=== PATIENT | female | born 1960 | race African-American/Black ===

== ENCOUNTER → 2016-12-12 | Outpatient (CLI) | payer BC ==
[~2016-12-12] VITALS: Ht 165.1 cm; Wt 142.4 kg
[~2016-12-12] MED LIST: ADIPEX-P37.5 MG PO; AMLOPIDINE; ATIVAN 0.50.5 MG/TAB PO; ATIVAN0.5 MG PO; BLADDER CONTROL MED PO; BUPROBAN150 MG PO; CARVEDILOL; CLARITIN 1010 MG/TAB PO; COREG 3.123.125 MG/T PO; COREG12.5 MG PO; CYMBALTA 30MG30 MG PO; CYMBALTA 60MG60 MG PO; DESYREL 100MG100 MG PO; DESYREL 50MG50 MG PO; FLEXERIL 1010 MG/TAB PO; HCTZ 25MG TAB25 MG PO; LORTAB 5/500 501 TAB PO; MEVACOR 20M20 MG/TAB PO; MICROZIDE12.5 MG PO; MYRBETR25MG PO; NEURONTIN600 MG/TAB PO; NEXIUM PO; NORVASC 5MG5 MG/TAB PO; ORTHO TRI-CYCLE1 TA1 PO; PRINIVIL2.5 MG PO; PROTONIX 40MG T40 MG PO; TOPAMAX 25MG25 M1 PO; TRAZODONE100 MG PO; WELLBUTRIN XL150 MG PO; WELLBUTRIN XL300 M1; WELLBUTRIN XL300 M1 PO; ZANTAC 150MG T150 MG PO; ZESTRIL 20MG TA20 MG PO; ZIPSOR25 MG PO; ZOFRAN8 MG PO; ZORVOLEX35 MG PO; [UNRECOGNIZED DRUG - OTHER]
[2016-12-12 09:59] VITALS: BP 128/66; PULSE 99
[2016-12-12 10:17] VITALS: BP 128/66; PULSE 99
== END ==
LOC: LIGHT 09:50
DX: E88.81 Metabolic syndrome and other insulin resistance (principal); E16.1 Other hypoglycemia; E66.01 Morbid (severe) obesity due to excess calories; Z68.43 Body mass index [BMI] 50.0-59.9, adult; F50.81 Binge eating disorder

== ENCOUNTER → 2017-01-03 | Outpatient (CLI) | payer BC | LOC: BHSO 09:01 | DX: F33.1 Major depressive disorder, recurrent, moderate (principal) ==

== ENCOUNTER → 2017-01-08 | Outpatient (CLI) | payer BC | LOC: BHSO 15:18 | DX: F33.41 Major depressive disorder, recurrent, in partial remission (principal) ==

== ENCOUNTER → 2017-01-16 | Outpatient (CLI) | payer BC ==
[~2017-01-16] VITALS: Ht 165.1 cm; Wt 142.9 kg
[2017-01-16 13:11] VITALS: BP 121/72; PULSE 96
[2017-01-16 13:28] VITALS: BP 121/72; PULSE 96
== END ==
LOC: LIGHT 12:55
DX: E88.81 Metabolic syndrome and other insulin resistance (principal); E16.1 Other hypoglycemia; F50.89 Other specified eating disorder; E66.01 Morbid (severe) obesity due to excess calories; Z68.43 Body mass index [BMI] 50.0-59.9, adult

== ENCOUNTER 2017-01-18 18:18 | Emergency (ER) | payer BC ==
[~2017-01-18] VITALS: Ht 165.1 cm; Wt 143.2 kg
[~2017-01-18 18:18] MED LIST changes: -ZOFRAN8 MG PO
[2017-01-18 18:20] VITALS: TEMP 99.1
[2017-01-18] MEDS ORDERED: ZOFRAN8 MG PO (19:14)
[2017-01-18 19:42] LABS: BASO % 0.8 % (0.0-2.0); EOS # 0.1 (0.0-0.7); GRAN # 2.1 (1.4-6.5); GRAN % 41.4 % (42.2-75.2); HEMATOCRIT 36.9 % (37.0-47.0); HEMOGLOBIN 12.3 g/dl (12.5-16.0); LYMPH # 2.4 (1.2-3.4); LYMPH % 46.9 % (20.0-51.0); MEAN CELL VOLUME 92 fl (80.0-100.0); MEAN CORPUSCULAR HEMOGLOBIN 31 pg (27.0-31.0); MEAN CORPUSCULAR HGB CONC 33 g/dl (33.0-37.0); MEAN PLATELET VOLUME 9.2 fl (7.4-10.4); MONO # 0.4 (0.1-0.6); MONO % 8.7 % (1.7-9.3); PLATELET COUNT 344 K/mm3 (130-400); RED BLOOD COUNT 4.01 M/mm3 (4.10-5.30); WHITE BLOOD COUNT 5.1 K/mm3 (4.8-10.8)
[2017-01-18 19:45] LABS: ADJUSTED CALCIUM 9.6 mg/dL (8.4-10.2); ALANINE AMINOTRANSFERASE 31 U/L (9-52); ALBUMIN 4.4 gm/dL (3.5-5.0); ALKALINE PHOSPHATASE 85 U/L (50-136); ANION GAP 13 mmol/L (7-16); BLOOD UREA NITROGEN 25 mg/dL (7-17); CALCIUM 9.9 mg/dL (8.4-10.2); CARBON DIOXIDE 28 mmol/L (22-30); CHLORIDE 100 mmol/L (98-107); CREATININE, serum 1.33 mg/dL (0.52-1.25); GLUCOSE 94 mg/dL (74-106); LIPASE 97 U/L (23-300); POTASSIUM 3.8 mmol/L (3.4-5.0); SODIUM 141 mmol/L (137-145); TOTAL PROTEIN 8.1 gm/dL (6.4-8.2)
[2017-01-18 19:46] LABS: PH 6 (5-8); URINE APPEARANCE Hazy; URINE BACTERIA Rare /hpf; URINE BILIRUBIN Negative (NEGATIVE); URINE BLOOD Negative (NEGATIVE); URINE COLOR Yellow; URINE GLUCOSE Negative (NEGATIVE); URINE KETONE Negative (NEGATIVE); URINE RBC 0-2 /hpf; URINE UROBILINOGEN Negative (NEGATIVE)
[2017-01-18 19:59] LABS: TROPONIN-I < 0.012 ng/mL (0.000-0.034)
[2017-01-18 20:47] VITALS: BP 130/77; PULSE 94
== END 2017-01-18 20:47 | disposition home or self-care (01) ==
LOC: COL.ER 18:18
PROVIDERS: Emergency Medicine
DX: R55 Syncope and collapse (principal); N19 Unspecified kidney failure
CPT/HCPCS: J2405; J7030

== ENCOUNTER → 2017-02-12 | Outpatient (CLI) | payer BC ==
[~2017-02-12] MED LIST changes: +ZOFRAN8 MG PO
== END ==
LOC: BHSO 09:03
DX: F41.1 Generalized anxiety disorder (principal)

== ENCOUNTER → 2017-02-20 | Outpatient (CLI) | payer BC ==
[~2017-02-20] VITALS: Ht 165.1 cm; Wt 142.4 kg
[2017-02-20 13:36] VITALS: BP 128/60; PULSE 91
== END ==
LOC: LIGHT 13:30
DX: E88.81 Metabolic syndrome and other insulin resistance (principal); E16.1 Other hypoglycemia; E66.01 Morbid (severe) obesity due to excess calories; Z68.43 Body mass index [BMI] 50.0-59.9, adult; F50.81 Binge eating disorder

== ENCOUNTER → 2017-02-27 | Outpatient (CLI) | payer BC | LOC: BHSO 10:12 | DX: F41.1 Generalized anxiety disorder (principal) ==

== ENCOUNTER → 2017-03-20 | Outpatient (CLI) | payer SELFPAY | LOC: BHSO 14:55 | DX: F41.1 Generalized anxiety disorder (principal) ==

== ENCOUNTER → 2017-03-27 | Outpatient (CLI) | payer SELFPAY ==
[~2017-03-27] VITALS: Ht 165.1 cm; Wt 137.9 kg
[2017-03-27 11:00] VITALS: BP 108/70; PULSE 81
[2017-07-14 13:55] VITALS: BP 148/86; PULSE 88
[2017-07-28 10:52] VITALS: BP 118/76; PULSE 68
== END ==
LOC: BHSO 03-13 09:59 → LIGHT 09:10
DX: E88.81 Metabolic syndrome and other insulin resistance (principal); E16.1 Other hypoglycemia; E66.01 Morbid (severe) obesity due to excess calories; Z68.43 Body mass index [BMI] 50.0-59.9, adult; F50.81 Binge eating disorder

== ENCOUNTER → 2017-06-12 | Outpatient (CLI) | payer SELFPAY | LOC: BHSO 10:47 | DX: F33.41 Major depressive disorder, recurrent, in partial remission (principal) ==

== ENCOUNTER → 2017-06-26 | Outpatient (CLI) | payer SELFPAY | LOC: BHSO 15:58 | DX: F41.1 Generalized anxiety disorder (principal) ==

== ENCOUNTER → 2017-07-14 | Outpatient (CLI) | payer SELFPAY | LOC: BHSO 13:08 | DX: F41.1 Generalized anxiety disorder (principal) ==

== ENCOUNTER → 2017-07-25 | Outpatient (CLI) | payer SELFPAY | LOC: BHSO 10:04 | DX: F41.1 Generalized anxiety disorder (principal) ==

== ENCOUNTER → 2017-07-28 | Outpatient (CLI) | payer SELFPAY | LOC: BHSO 10:14 | DX: F33.1 Major depressive disorder, recurrent, moderate (principal) ==

== ENCOUNTER → 2017-08-11 | Outpatient (CLI) | payer SELFPAY | LOC: BHSO 10:14 | DX: F41.1 Generalized anxiety disorder (principal) ==

== ENCOUNTER → 2017-08-13 | Outpatient (CLI) | payer SELFPAY | LOC: BHSO 10:53 | DX: F33.41 Major depressive disorder, recurrent, in partial remission (principal) ==

== ENCOUNTER → 2017-09-05 | Outpatient (CLI) | payer BC | LOC: BHSO 13:03 | DX: F33.1 Major depressive disorder, recurrent, moderate (principal) ==

== ENCOUNTER → 2017-09-17 | Outpatient (CLI) | payer BC | LOC: BHSO 10:07 | DX: F33.1 Major depressive disorder, recurrent, moderate (principal) ==

== ENCOUNTER → 2017-09-25 | Outpatient (CLI) | payer BC | LOC: BHSO 10:27 | DX: F33.41 Major depressive disorder, recurrent, in partial remission (principal) ==

== ENCOUNTER → 2017-10-08 | Outpatient (CLI) | payer BC | LOC: BHSO 09:17 | DX: F41.1 Generalized anxiety disorder (principal) ==

== ENCOUNTER → 2017-10-09 | Outpatient (CLI) | payer BC ==
[~2017-10-09] VITALS: Ht 165.1 cm; Wt 138.3 kg
[2017-10-09 11:29] VITALS: BP 126/76; PULSE 72
== END ==
LOC: LIGHT 11:08
DX: E88.81 Metabolic syndrome and other insulin resistance (principal); E16.1 Other hypoglycemia; E66.01 Morbid (severe) obesity due to excess calories; Z68.43 Body mass index [BMI] 50.0-59.9, adult; Z71.3 Dietary counseling and surveillance; F50.81 Binge eating disorder

== ENCOUNTER → 2017-11-06 | Outpatient (CLI) | payer BC ==
[~2017-11-06] MED LIST changes: +TOPAMAX50 MG PO
== END ==
LOC: BHSO 09:13
DX: F41.1 Generalized anxiety disorder (principal)

== ENCOUNTER → 2017-11-06 | Outpatient (CLI) | payer BC ==
[~2017-11-06] VITALS: Ht 165.1 cm; Wt 137.4 kg
[2017-11-06 10:29] VITALS: BP 110/70; PULSE 72
== END ==
LOC: LIGHT 10:08
DX: E88.81 Metabolic syndrome and other insulin resistance (principal); E16.1 Other hypoglycemia; E66.01 Morbid (severe) obesity due to excess calories; Z68.43 Body mass index [BMI] 50.0-59.9, adult; Z71.3 Dietary counseling and surveillance; F50.81 Binge eating disorder

== ENCOUNTER → 2017-12-11 | Outpatient (CLI) | payer BC | LOC: BHSO 14:40 | DX: F41.1 Generalized anxiety disorder (principal) | CPT/HCPCS: G0463 ==

== ENCOUNTER → 2017-12-11 | Outpatient (CLI) | payer BC ==
[~2017-12-11] VITALS: Ht 165.1 cm; Wt 137.4 kg
[2017-12-11 12:24] VITALS: BP 120/64; PULSE 88
== END ==
LOC: LIGHT
DX: E88.81 Metabolic syndrome and other insulin resistance (principal); E16.1 Other hypoglycemia; E66.01 Morbid (severe) obesity due to excess calories; Z68.43 Body mass index [BMI] 50.0-59.9, adult; Z71.3 Dietary counseling and surveillance; F50.81 Binge eating disorder
CPT/HCPCS: G0463

== ENCOUNTER → 2017-12-15 | Outpatient (CLI) | payer BC | LOC: BHSO 09:12 | DX: F41.1 Generalized anxiety disorder (principal) ==

== ENCOUNTER → 2018-01-15 | Outpatient (CLI) | payer BC ==
[~2018-01-15] VITALS: Ht 165.1 cm; Wt 137.2 kg
[~2018-01-15] MED LIST changes: +MOBIC15 MG PO
[2018-01-15 10:40] VITALS: BP 120/74; PULSE 80
== END ==
LOC: LIGHT 09:19
DX: E88.81 Metabolic syndrome and other insulin resistance (principal); E16.1 Other hypoglycemia; E66.01 Morbid (severe) obesity due to excess calories; Z68.43 Body mass index [BMI] 50.0-59.9, adult; Z71.3 Dietary counseling and surveillance; F50.81 Binge eating disorder
CPT/HCPCS: G0463

== ENCOUNTER → 2018-01-21 | Outpatient (CLI) | payer BC | LOC: BHSO 11:01 | DX: F33.2 Major depressive disorder, recurrent severe without psychotic features (principal) ==

== ENCOUNTER → 2018-01-26 | Outpatient (CLI) | payer BC | LOC: BHSO 10:05 | DX: F33.2 Major depressive disorder, recurrent severe without psychotic features (principal) ==

== ENCOUNTER → 2018-02-12 | Outpatient (CLI) | payer BC | LOC: BHSO 09:45 | DX: F33.41 Major depressive disorder, recurrent, in partial remission (principal) | CPT/HCPCS: G0463 ==

== ENCOUNTER → 2018-02-17 | Outpatient (CLI) | payer BC | LOC: BHSO 09:06 | DX: F33.1 Major depressive disorder, recurrent, moderate (principal) ==

== ENCOUNTER → 2018-03-05 | Outpatient (CLI) | payer BC | LOC: BHSO 10:07 | DX: F33.2 Major depressive disorder, recurrent severe without psychotic features (principal) ==

== ENCOUNTER → 2018-03-12 | Outpatient (CLI) | payer BC ==
[~2018-03-12] VITALS: Ht 165.1 cm; Wt 138.3 kg
[2018-03-12 14:10] VITALS: BP 130/76; PULSE 80
== END ==
LOC: LIGHT
DX: E88.81 Metabolic syndrome and other insulin resistance (principal); E16.1 Other hypoglycemia; E66.01 Morbid (severe) obesity due to excess calories; Z68.43 Body mass index [BMI] 50.0-59.9, adult; Z71.3 Dietary counseling and surveillance; F50.81 Binge eating disorder
CPT/HCPCS: G0463

== ENCOUNTER → 2018-03-19 | Outpatient (CLI) | payer BC | LOC: BHSO 13:20 | DX: F33.1 Major depressive disorder, recurrent, moderate (principal) ==

== ENCOUNTER → 2018-04-10 | Outpatient (CLI) | payer BC | LOC: BHSO 13:00 | DX: F33.1 Major depressive disorder, recurrent, moderate (principal) ==

== ENCOUNTER → 2018-04-23 | Outpatient (CLI) | payer BC ==
[~2018-04-23] VITALS: Ht 165.1 cm; Wt 139.9 kg
[2018-04-23 09:53] VITALS: BP 118/76; PULSE 76
== END ==
LOC: LIGHT 09:44
DX: E88.81 Metabolic syndrome and other insulin resistance (principal); E16.1 Other hypoglycemia; E66.01 Morbid (severe) obesity due to excess calories; Z68.43 Body mass index [BMI] 50.0-59.9, adult; Z71.3 Dietary counseling and surveillance; F50.81 Binge eating disorder
CPT/HCPCS: G0463

== ENCOUNTER → 2018-05-08 | Outpatient (CLI) | payer BC | LOC: BHSO 13:21 | DX: F33.41 Major depressive disorder, recurrent, in partial remission (principal) | CPT/HCPCS: G0463 ==

== ENCOUNTER → 2018-05-20 | Outpatient (CLI) | payer BC | LOC: BHSO 14:13 | DX: F33.1 Major depressive disorder, recurrent, moderate (principal) ==

== ENCOUNTER → 2018-06-10 | Outpatient (CLI) | payer BC | LOC: COL.RAD 13:00 | DX: M25.551 Pain in right hip (principal) | CPT/HCPCS: J3301; Q9967 ==

== ENCOUNTER → 2018-06-11 | Outpatient (CLI) | payer BC | LOC: BHSO 09:23 | DX: F33.1 Major depressive disorder, recurrent, moderate (principal) ==

== ENCOUNTER → 2018-06-11 | Outpatient (CLI) | payer BC ==
[~2018-06-11] VITALS: Ht 162.6 cm; Wt 139.0 kg
[2018-06-11 13:40] VITALS: BP 134/70; PULSE 88
== END ==
LOC: LIGHT 11:17
DX: E88.81 Metabolic syndrome and other insulin resistance (principal); E16.1 Other hypoglycemia; E66.01 Morbid (severe) obesity due to excess calories; Z68.43 Body mass index [BMI] 50.0-59.9, adult; Z71.3 Dietary counseling and surveillance; F50.81 Binge eating disorder
CPT/HCPCS: G0463

== ENCOUNTER 2018-06-19 15:00 | Outpatient (RCR) | payer BC | END 2018-06-30 | disposition home or self-care (01) | LOC: WSPT | DX: M48.00 Spinal stenosis, site unspecified (principal); M54.5 Low back pain; M25.551 Pain in right hip ==

== ENCOUNTER → 2018-06-30 | Outpatient (CLI) | payer BC | LOC: BHSO 10:09 | DX: F33.1 Major depressive disorder, recurrent, moderate (principal) ==

== ENCOUNTER → 2018-07-01 | Outpatient (CLI) | payer BC | LOC: BHSO 09:01 | DX: Z09 Encounter for follow-up examination after completed treatment for conditions other than malignant neoplasm (principal) ==

== ENCOUNTER → 2018-07-16 | Outpatient (CLI) | payer BC | LOC: BHSO 09:14 | DX: F33.1 Major depressive disorder, recurrent, moderate (principal) ==

== ENCOUNTER → 2018-08-05 | Outpatient (CLI) | payer BC | LOC: BHSO 09:08 | DX: F33.41 Major depressive disorder, recurrent, in partial remission (principal) | CPT/HCPCS: G0463 ==

== ENCOUNTER → 2018-08-06 | Outpatient (CLI) | payer BC ==
[~2018-08-06] VITALS: Ht 162.6 cm; Wt 138.6 kg
[2018-08-06 11:57] VITALS: BP 122/70; PULSE 80
== END ==
LOC: LIGHT 07-23 16:17
DX: E88.81 Metabolic syndrome and other insulin resistance (principal); E16.9 Disorder of pancreatic internal secretion, unspecified; F50.81 Binge eating disorder; E66.01 Morbid (severe) obesity due to excess calories; Z68.42 Body mass index [BMI] 45.0-49.9, adult; Z71.3 Dietary counseling and surveillance
CPT/HCPCS: G0463

== ENCOUNTER → 2018-08-12 | Outpatient (CLI) | payer BC | LOC: BHSO 10:08 | DX: F33.1 Major depressive disorder, recurrent, moderate (principal) ==

== ENCOUNTER 2018-08-21 09:00 | Outpatient (RCR) | payer BC ==
[2018-09-17] MEDS ORDERED: NORCO 325 MG-51 TAB PO (11:49)
== END 2018-09-30 | disposition home or self-care (01) ==
LOC: WSPT
DX: M48.00 Spinal stenosis, site unspecified (principal); M54.5 Low back pain; M25.551 Pain in right hip
CPT/HCPCS: G0283-GP

== ENCOUNTER → 2018-09-17 | Outpatient (CLI) | payer BC ==
[~2018-09-17] VITALS: Ht 162.6 cm; Wt 137.2 kg
[~2018-09-17] MED LIST changes: +NORCO 325 MG-51 TAB PO
[2018-09-17 11:50] VITALS: BP 128/62; PULSE 92
== END ==
LOC: LIGHT 11:18
DX: E88.81 Metabolic syndrome and other insulin resistance (principal); E16.9 Disorder of pancreatic internal secretion, unspecified; F50.81 Binge eating disorder; E66.01 Morbid (severe) obesity due to excess calories; Z68.43 Body mass index [BMI] 50.0-59.9, adult; Z71.3 Dietary counseling and surveillance
CPT/HCPCS: G0463

== ENCOUNTER → 2018-10-01 | Outpatient (CLI) | payer BC | LOC: BHSO 10:01 | DX: F33.2 Major depressive disorder, recurrent severe without psychotic features (principal) ==

== ENCOUNTER → 2018-10-08 | Outpatient (CLI) | payer BC | LOC: BHSO 09:41 | DX: F33.41 Major depressive disorder, recurrent, in partial remission (principal) | CPT/HCPCS: G0463 ==

== ENCOUNTER → 2018-10-15 | Outpatient (CLI) | payer BC | LOC: BHSO 14:04 | DX: F33.2 Major depressive disorder, recurrent severe without psychotic features (principal) ==

== ENCOUNTER → 2018-10-15 | Outpatient (CLI) | payer BC ==
[~2018-10-15] VITALS: Ht 162.6 cm; Wt 134.9 kg
[2018-10-15 15:25] VITALS: BP 140/82; PULSE 88
== END ==
LOC: LIGHT 14:06
DX: E88.81 Metabolic syndrome and other insulin resistance (principal); E16.9 Disorder of pancreatic internal secretion, unspecified; E66.01 Morbid (severe) obesity due to excess calories; Z68.43 Body mass index [BMI] 50.0-59.9, adult; Z71.3 Dietary counseling and surveillance
CPT/HCPCS: G0463

== ENCOUNTER → 2018-12-16 | Outpatient (CLI) | payer BC | LOC: BHSO 11:06 | DX: F33.1 Major depressive disorder, recurrent, moderate (principal) | CPT/HCPCS: G0463 ==

== ENCOUNTER → 2018-12-17 | Outpatient (CLI) | payer BC ==
[~2018-12-17] VITALS: Ht 162.6 cm; Wt 134.5 kg
[2018-12-17 11:41] VITALS: BP 126/70; PULSE 92
== END ==
LOC: LIGHT
DX: E88.81 Metabolic syndrome and other insulin resistance (principal); E16.9 Disorder of pancreatic internal secretion, unspecified; F50.81 Binge eating disorder; E66.01 Morbid (severe) obesity due to excess calories; Z68.43 Body mass index [BMI] 50.0-59.9, adult; Z71.3 Dietary counseling and surveillance
CPT/HCPCS: G0463

== ENCOUNTER → 2018-12-17 | Outpatient (CLI) | payer BC | LOC: BHSO 11:28 | DX: F33.2 Major depressive disorder, recurrent severe without psychotic features (principal) ==

== ENCOUNTER → 2018-12-31 | Outpatient (CLI) | payer BC | LOC: BHSO 11:00 | DX: F33.2 Major depressive disorder, recurrent severe without psychotic features (principal) ==

== ENCOUNTER → 2019-01-11 | Outpatient (CLI) | payer BC | LOC: MHCPAIN 10:26 | DX: G89.29 Other chronic pain (principal); M47.817 Spondylosis without myelopathy or radiculopathy, lumbosacral region; M54.16 Radiculopathy, lumbar region; M53.3 Sacrococcygeal disorders, not elsewhere classified; M48.061 Spinal stenosis, lumbar region without neurogenic claudication | CPT/HCPCS: G0463 ==

== ENCOUNTER → 2019-01-14 | Outpatient (CLI) | payer BC | LOC: BHSO 13:01 | DX: F33.1 Major depressive disorder, recurrent, moderate (principal) ==

== ENCOUNTER → 2019-01-28 | Outpatient (CLI) | payer BC | LOC: BHSO 13:01 | DX: F33.1 Major depressive disorder, recurrent, moderate (principal) ==

== ENCOUNTER → 2019-02-23 | Outpatient (CLI) | payer BC | LOC: BHSO 14:12 | DX: F42.9 Obsessive-compulsive disorder, unspecified (principal) ==

== ENCOUNTER → 2019-03-08 | Outpatient (CLI) | payer BC | LOC: BHSO 10:46 | DX: F33.1 Major depressive disorder, recurrent, moderate (principal) ==

== ENCOUNTER → 2019-03-25 | Outpatient (CLI) | payer BC | LOC: BHSO 11:02 | DX: F33.1 Major depressive disorder, recurrent, moderate (principal) ==

== ENCOUNTER → 2019-04-12 | Outpatient (CLI) | payer BC | LOC: BHSO 14:25 | DX: F06.32 Mood disorder due to known physiological condition with major depressive-like episode (principal) | CPT/HCPCS: G0463 ==

== ENCOUNTER 2019-04-16 11:31 | Day surgery (SDC) | payer BC ==
[~2019-04-16] VITALS: Ht 162.6 cm; Wt 138.8 kg
[2019-04-16] VITALS (12 sets, daily range): BP systolic 105–120; BP diastolic 58–94; PULSE 76–85; TEMP 98.6
[2019-04-16] MEDS ORDERED: CLARITIN 1010 MG/TAB PO (12:14)
[2019-04-16] MEDS ORDERED: MYRBETR25MG PO (12:16)
[2019-04-16 12:20] LABS: MEAN CELL VOLUME 93 fl (80.0-100.0); MEAN CORPUSCULAR HEMOGLOBIN 32 pg (27.0-31.0); MEAN CORPUSCULAR HGB CONC 34 g/dl (33.0-37.0); MEAN PLATELET VOLUME 8.9 fl (7.4-10.4); PLATELET COUNT 318 K/mm3 (130-400); RED BLOOD COUNT 3.81 M/mm3 (4.10-5.30); REDCELL DISTRIBUTION WIDTH-CV 12.7 % (11.5-14.5)
[2019-04-16 12:22] LABS: HEMATOCRIT 35.5 % (37.0-47.0)
[2019-04-16 12:29] LABS: CALCIUM 9.3 mg/dL (8.4-10.2); CREATININE, serum 1.16 (0.52-1.25); POTASSIUM 3.4 mmol/L (3.4-5.0)
[2019-04-16 12:40] LABS: INR 1.1 (0.8-3.0)
--- NOTE | 2019-04-16 13:13 | NUR ---
P[LEASE SEE MERGE FOR ALL MEDICATION ADMINISTRATION TIMES,RASS ASSESSMENT DATA DURING AND POST PROCEDURE. ALLENS TEST POSITIVE AND RADIAL PREPPED..
[2019-04-16] MEDS ORDERED: COLACE 100100 MG/CAP PO (13:17)
[2019-04-16] MEDS ORDERED: SALAGEN 5MG TAB5 MG PO (13:17)
[2019-04-16] MEDS ORDERED: DETROL LA4 PO (13:19)
[2019-04-16] MEDS ORDERED: PLAQUENIL 200M200 MG PO (13:20)
--- NOTE | 2019-04-16 13:28 | NUR ---
Called [facility] [place] [facility] well [facility] in [place] and verified all medications, current med list is up to date. 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 Will await return.
--- NOTE | 2019-04-16 18:11 | NUR ---
Discharge instructions given to pt.pt verbalizes understanding.INT removed,catheter tip intact.
== END 2019-04-16 18:13 | disposition home or self-care (01) ==
LOC: COL.CAR 11:31
PROVIDERS: Internal Medicine Interventional Cardiology
DX: R07.9 Chest pain, unspecified (principal); R94.39 Abnormal result of other cardiovascular function study; M79.601 Pain in right arm; R06.02 Shortness of breath; R93.89 Abnormal findings on diagnostic imaging of other specified body structures; Z82.49 Family history of ischemic heart disease and other diseases of the circulatory system
CPT/HCPCS: C1769; C1894; J1644; J2250; J3010

== ENCOUNTER → 2019-04-19 | Outpatient (CLI) | payer BC ==
[~2019-04-19] MED LIST changes: +COLACE 100100 MG/CAP PO; +DETROL LA4 PO; +PLAQUENIL 200M200 MG PO; +SALAGEN 5MG TAB5 MG PO
== END ==
LOC: BHSO 11:13
DX: F33.1 Major depressive disorder, recurrent, moderate (principal)

== ENCOUNTER → 2019-04-29 | Outpatient (CLI) | payer BC | LOC: BHSO 10:13 | DX: F33.1 Major depressive disorder, recurrent, moderate (principal) ==

== ENCOUNTER → 2019-04-29 | Outpatient (CLI) | payer BC ==
[~2019-04-29] VITALS: Ht 162.6 cm; Wt 140.4 kg
[2019-04-29 11:06] VITALS: BP 136/66; PULSE 76
== END ==
LOC: LIGHT 02-18 00:49
DX: E88.81 Metabolic syndrome and other insulin resistance (principal); E16.9 Disorder of pancreatic internal secretion, unspecified; F50.81 Binge eating disorder; E66.01 Morbid (severe) obesity due to excess calories; Z68.43 Body mass index [BMI] 50.0-59.9, adult; Z71.3 Dietary counseling and surveillance
CPT/HCPCS: G0463

== ENCOUNTER → 2019-05-11 | Outpatient (CLI) | payer BC | LOC: BHSO 14:06 | DX: F33.1 Major depressive disorder, recurrent, moderate (principal) ==

== ENCOUNTER → 2019-05-26 | Outpatient (CLI) | payer BC | LOC: BHSO 13:57 | DX: F33.1 Major depressive disorder, recurrent, moderate (principal) ==

== ENCOUNTER → 2019-05-27 | Outpatient (CLI) | payer BC, MEDICAID ==
[~2019-05-27] VITALS: Ht 162.6 cm; Wt 144.0 kg
[2019-05-27 16:08] VITALS: BP 122/64; PULSE 100
== END ==
LOC: LIGHT 13:36
DX: E88.81 Metabolic syndrome and other insulin resistance (principal); E16.9 Disorder of pancreatic internal secretion, unspecified; F50.81 Binge eating disorder; E66.01 Morbid (severe) obesity due to excess calories; Z68.43 Body mass index [BMI] 50.0-59.9, adult; Z71.3 Dietary counseling and surveillance
CPT/HCPCS: G0463

== ENCOUNTER 2019-06-24 10:40 | Inpatient (IN) | payer BC, MEDICAID ==
[~2019-06-24] VITALS: Ht 162.6 cm; Wt 150.5 kg
[~2019-06-24 10:40] MED LIST changes: -DESYREL 100MG100 MG PO; +DESYREL DIVIDO150 M1 PO; +MYRBETR50MG PO; +NORCO 325 MG-101 TAB PO
[2019-06-24 19:20] VITALS: BP 120/55; PULSE 97; TEMP 99
[2019-06-24] MEDS ORDERED: ASPIRIN E.C. 8181 MG PO (21:41)
[2019-06-24] MEDS ORDERED: WELLBUTRIN XL150 MG PO (21:44)
[2019-06-24] MEDS ORDERED: K-TAB10 PO (21:45)
[2019-06-24] MEDS ORDERED: VESICARE 5MG5 MG PO (21:53)
--- NOTE | 2019-06-24 22:48 | NUR ---
Pt arrived via private vehicle to [facility] room 339 at shift change. Pt signed consents, new wristband applied, in bed with alarm on, call lt in reach. Questions answered, pt ordered meals for tomorrow. Report to MARLYN Eugene.
[2019-06-25 05:47] VITALS: BP 109/49; PULSE 89; TEMP 98.2
[2019-06-25 09:10] VITALS: BP 115/61
--- NOTE | 2019-06-25 10:56 | NUR ---
Initial visit; Patient thanked Sanitation Associate for looking in on her and offering spiritual care. Patient states she doesn't have a support system. She has a few friends who are only available occasionally. Sanitation Associate prayed with Jackeline and assured her we are all here to support and provide the care she needs to get well.
[2019-06-25] MEDS ORDERED: ZANAFLEX2 MG PO (11:53)
--- NOTE | 2019-06-25 16:53 | NUR ---
SW met with the patient to complete initial intake, as the patient is new to [facility]. The patient lives alone in [place] and used to work as a social services analyst. She states that her only child, Chuy Rabago, lives in [place]; but that they do not have the best relationship right now. She states that she has good friend support in [place]. She reports independence with ADLs and has two rolaiders and a power wheelchair. The patient's primary care provider is DEBORAH Freed and she receives her medications at the [facility] and [facility] in [place]. She reports no difficulties obtaining her meds. The patient does not have advanced directives. She states that she is unsure of who she would designate to be her DPOA-HC. ANGELINE to continue to follow to ensure a safe discharge.
--- NOTE | 2019-06-25 17:00 | NUR ---
Patient resting in recliner at this time, call light in reach and is one assist with transfers to the toilet using her walker. Patient attended all therapies today. Patient did have some frustration with call lights not being answered in a timely manner this afternoon. This nurse let patient talk about this frustration and this nurse gave her the nurse cell number to call to report if her call light did not get answered and to make sure she was able to get her needs known. She voiced undrstanding. Patient also was educated on the need to ask the nurse for pain meds when she felt she needed them. She voiced understanding. Patient was given prn pain meds with good effect. Patient had constipation and this nurse assisted patient with stool removal and administered a suppository. Patient had good results having three large stools.
[2019-06-25 18:35] VITALS: BP 105/68; PULSE 97; TEMP 97.5
[2019-06-26 05:57] VITALS: BP 95/56; PULSE 84; TEMP 98.3
--- NOTE | 2019-06-26 13:14 | NUR ---
Pt's friend Dawson Penaloza taking pt's container of various medications home for pt. Pt to chair with foot rest up, SCDs in place, yellow grippers on, glasses and call lt in reach. Friends visiting.
--- NOTE | 2019-06-26 14:41 | NUR ---
Pt toileted, returned to bed, SCDs and foam placed to BLE, ice to rt hip, dressing has scant drainage. Call lt, phone in reach, alarm on.
[2019-06-26 18:16] VITALS: BP 134/72; PULSE 91; TEMP 98.3
--- NOTE | 2019-06-26 19:16 | NUR ---
Pt has visitors, bed alarm on, call lt in reach, SCDs to BLE, RLE on 2 pillows, ice to R hip. Report to MARLYN Eugene.
--- NOTE | 2019-06-26 20:30 | NUR ---
PT'S FAMILY HERE. CHEERFUL AND TALKATIVE. JUST FINISHED PROTEIN DRINK. DECLINED ENLIVE SUPPLEMENT. PT MOVING WELL IN AND OUT OF BED. RT HIP SWOLLEN. AQUACELL INTACT. SL PEELING ON EDGE. SMALL AMT DARK SHADOWING NOTED. PAIN UNDER CONTOL AT THIS TIME. CALL LIGHT IN REACH. BED ALARM SET.
--- NOTE | 2019-06-26 23:45 | NUR ---
PT C/O MUSCLE ACHES IN BILAT ARMS. SEE MAR.
[2019-06-27 05:15] VITALS: BP 107/61; PULSE 82; TEMP 98.1
[2019-06-27 06:01] LABS: BASO % 0.7 % (0.0-2.0); EOS # 0.2 (0.0-0.7); EOS % 3.5 % (0-4.0); GRAN # 2.2 (1.4-6.5); GRAN % 51.7 % (42.2-75.2); HEMATOCRIT 24.4 % (37.0-47.0); LYMPH # 1.5 (1.2-3.4); LYMPH % 35.9 % (20.0-51.0); MEAN CELL VOLUME 96 fl (80.0-100.0); MEAN CORPUSCULAR HEMOGLOBIN 31 pg (27.0-31.0); MEAN CORPUSCULAR HGB CONC 33 g/dl (33.0-37.0); MEAN PLATELET VOLUME 8.9 fl (7.4-10.4); MONO # 0.3 (0.1-0.6); PLATELET COUNT 283 K/mm3 (130-400); RED BLOOD COUNT 2.55 M/mm3 (4.10-5.30); REDCELL DISTRIBUTION WIDTH-CV 12.5 % (11.5-14.5)
[2019-06-27 06:20] LABS: CALCIUM 8.5 mg/dL (8.4-10.2); CREATININE, serum 0.9 (0.52-1.25); POTASSIUM 3.6 mmol/L (3.4-5.0)
--- NOTE | 2019-06-27 09:39 | NUR ---
Report from MARLYN Eugene. Pt to chair with feet up for breakfast, call lt in reach. Pt called for pain pill, when nurse arrived pt states "well, I'm not having any pain now" and rated 4/10, norco given, then pt verbalized frustrations with staff(ing) and especially when staff enter room at night and turn the overhead light on. Listened to pt, reitterated some points that pt c/o when staff were following safety protocol, ex: using gripper socks, gait belt, staff supervision to ambulate. Pt also c/o one SPECIAL EDUCATION MATH TEACHER "doing a different routine" whereas she set up the walker before helping pt get blankets off and out of bed first. Informed She, Sugar Grinder, and she came with Hugh Cortez, they are visiting with pt now.
--- NOTE | 2019-06-27 10:14 | NUR ---
Ice pack to rt hip
--- NOTE | 2019-06-27 12:04 | NUR ---
House Supervisors were in pt's room at length, they informed this nurse of no new complaints from pt to be addressed. Hugh assisted pt back to bed. Pt has not called for needs.
[2019-06-27 18:27] VITALS: BP 103/55; PULSE 86; TEMP 98.6
--- NOTE | 2019-06-27 20:24 | NUR ---
Report to MARLYN Eugene, and informed nurse that pt requests ativan tonight. No acute changes.
--- NOTE | 2019-06-28 02:53 | NUR ---
ASSITED TO BR WITH WALKER. MOVING VERY WELL. DENIES NEED FOR PAIN MEDICATION. NO DIFFICULTY VOIDING. BACK TO BEWD. SCDS AND PILLOWS IN PLACE. CALL LIGHT IN REACH. BED ALARM SET.
[2019-06-28 05:49] VITALS: BP 112/50; PULSE 91; TEMP 98.4
--- NOTE | 2019-06-28 10:25 | NUR ---
Attending therapies this morning. Reported pain to rt hip and given prn pain meds. Will continue to monitor.
--- NOTE | 2019-06-28 16:01 | NUR ---
SW met with patient to follow up after the weekend. Patient reports she is interested in some home health services when she is discharged. SW reports she will mention this in the weekly IPR team conference on Friday. SW will follow up with patient after team conference.
[2019-06-28 18:11] VITALS: BP 110/53; PULSE 89; TEMP 99.1
--- NOTE | 2019-06-28 20:30 | NUR ---
HS meds all reviewed along with zanaflex for pain prevention and given. Alert and oriented x 4. Takes snack of pie and icecream.
--- NOTE | 2019-06-28 21:03 | NUR ---
Patient attended all therapies today. Patient was updated on recent labs and was updated on new med orders per Dr. Kent. Patient was able to tolerate pain to right hip and thigh with prn pain meds. Patient took pills whole. Will continue to monitor.
--- NOTE | 2019-06-29 01:40 | NUR ---
Patient rests with eyes closed. Light snoring respirations.
--- NOTE | 2019-06-29 04:30 | NUR ---
Rests with eyes closed. Respirations with ease.
[2019-06-29 06:00] VITALS: BP 128/59; PULSE 87; TEMP 98.9
--- NOTE | 2019-06-29 06:27 | NUR ---
Patient sits up in recliner. Reports hip pain 8 and roxycodone, zanaflex and ativan given per patient request.
--- NOTE | 2019-06-29 14:10 | NUR ---
Follow-up visit; Patient thanked Psychiatric Np for looking in on her and offering Spiritual Care.
[2019-06-29 17:53] VITALS: BP 126/71; PULSE 90; TEMP 97.7
--- NOTE | 2019-06-29 19:31 | NUR ---
Patient had her dressing changed to right hip yesterday. There was small amount of dark dried bloody drainage on dressing that was removed. No redness was observed to area. [place] are intact. Area was cleaned and new aquacel was placed over area. Patient attended all therapies today. She ate multiple meals this shift, having two lunch trays. Patient had a Medium Soft Formed BM this evening and was continent. Patient was given prn pain meds this shift and they were effective. Patient had multiple visitors this afternoon.
--- NOTE | 2019-06-29 21:10 | NUR ---
Visitor left for the night. YARN SPINNER assisted patient for HS and patient rests in bed. HS meds reviewed and given along with norco and ativan per patient request. Patient reports minimal pain at rest at this time. Patient looking up adaptive tool on line to assist with personal hygiene.
--- NOTE | 2019-06-30 02:15 | NUR ---
Patient rests quietly in bed. Respirations with ease.
[2019-06-30 05:31] VITALS: BP 100/54; PULSE 85; TEMP 98.8
[2019-06-30 07:20] LABS: HEMATOCRIT 25.8 % (37.0-47.0); HEMOGLOBIN 8.2 g/dl (12.5-16.0)
--- NOTE | 2019-06-30 11:35 | NUR ---
Pt requested a suppository and it was documented that it was given yesterday, called MARLYN Alegre and she states that it was NOT given.
--- NOTE | 2019-06-30 12:08 | NUR ---
Ice to hip, made shake with own powder and sprite with ice blended.
--- NOTE | 2019-06-30 16:22 | NUR ---
SW attended a family conference with patient and her son (via phone). Also present was IPR director, PT, and OT. IPR director started by explaining the purpose of the family conference. PT and OT explained that patient has made good progress with ADLs, transfers, and walking. The team agrees that patient will be ready to discharge home on Tuesday 07/03 (pending insurance approval). PT and OT recommend patient recieve home health services and OT recommends patient use a shower chair. SW will assist patient with arranging home health services and finding a shower chair that will meet patient's needs. SW will follow up with patient tomorrow to discuss DME and [facility] choice.
[2019-06-30 17:22] VITALS: BP 127/67; PULSE 84; TEMP 98.6
--- NOTE | 2019-06-30 18:23 | NUR ---
Made mod I in shayy nguyen
--- NOTE | 2019-06-30 20:30 | NUR ---
RETURNING FROM BR W/WALKER. SLOW STEADY GAIT. FAMILY HERE EARLIER. VERY SUPPORIVE. PT SHOWING HER PAINTINGS. PT NEEDS ASSIST WITH PLACING PILLOWS AND SCD'S IN BED. SEE MAR FOR PAIN MED GIVEN.
[2019-07-01 03:41] VITALS: BP 124/59; PULSE 87; TEMP 98.2
--- NOTE | 2019-07-01 12:05 | NUR ---
Follow-up visit; Patient did not remember Metal Reclamation Kettle Tender from prior visits. Metal Reclamation Kettle Tender will now wait for request from Hillary for further visits.
--- NOTE | 2019-07-01 12:59 | NUR ---
Made slush with pt's own [place] powder, sprite and ice.
--- NOTE | 2019-07-01 16:32 | NUR ---
ANGELINE met with patient to discuss home health and DME company choice. Patient reviewed home health options for [place] adn chose [facility] [employer]. ANGELINE informed patient that there are two companies that have the size shower chair she needs. Patient chose [facility] for the shower chair and signed choice form. ANGELINE faxed home health referral and will fax shower chair after Dr Kent signs it.
[2019-07-01 18:34] VITALS: BP 116/62; PULSE 86; TEMP 98.2
--- NOTE | 2019-07-01 19:24 | NUR ---
Report to MARLYN Eugene. Ice packs given to pt per BOOK SALESMAN.
--- NOTE | 2019-07-01 20:15 | NUR ---
PT SITTING IN RECLINER. WATCHING TV. JUST ATE 2 ICE CREAMS. GETTING READY TO GO TO BED. MOD I IN ROOM W/WALKER. SEE MAR FOR PAIN MED/ ATIVAN GIVEN. ENC PT TO TRY TO WORK AT GETTING PILLOWS WHERE SHE NEEDED THEM IF SHE WERE AT HOME. ABLE TO SUCESSFULLY PLACE PILLOW BETWEEN KNEES WHEN TURNING TO SIDE. ICE PACK PLACED TO RT HIP. DENIES FURTHER NEEDS.
[2019-07-02 05:08] VITALS: BP 106/48; PULSE 45; TEMP 98.3
--- NOTE | 2019-07-02 07:00 | NUR ---
Report received from MARLYN Eugene. PT in bed resting, requesting fresh coffee, will provide. Call light in reach.
--- NOTE | 2019-07-02 08:16 | NUR ---
Assessment charted. Pt in bed resting, has requested assistance with having things brought to her in bed, discussed need to really "practice" for home today with independence. Pt denies any pain, states it does not hurt in R hip until amubalating. Aquacel is CDI. Voltaren gel applied per request. Pt denies other needs. Will continue to monitor.
--- NOTE | 2019-07-02 09:59 | NUR ---
ANGELINE contacted [facility] in [place] about the shower chair order that was faxed. They report that patient's insurance will not cover the cost of a shower chair. ANGELINE then contacted the [facility] to inquire if the have a shower chair available for patient to use. ANGELINE left a message for Perla. ANGELINE also conacted [facility] about referral. Joanie reports she is reviewing the referral and will contact ANGELINE after it is processed.
--- NOTE | 2019-07-02 14:09 | NUR ---
ANGELINE spoke to Janet at the [facility] in [place]. She reports they can provide a shower chair for patient. ANGELINE contacted patient's son, Chuy, to inquire if he can bean picker machine operator the shower chair today. Chuy reports he will. ANGELINE provided address. ANGELINE was also informed that patient is not eligible for home health PT/OT because her BCBS is no longer active. Patient was informed by the IPR director. ANGELINE will follow up with patient about outpatient PT/OT after therapy.
--- NOTE | 2019-07-02 14:29 | NUR ---
ANGELINE met with patient about discharge plan. Patient reports she will do outpatient PT/OT at [facility]. Patient's nurse will schedule her first appointment. ANGELINE also informed patient that her insurance is able to provide transportation for her to any appointments. ANGELINE provided patient with the Medicaid transportation number. ANGELINE also informed patient that her son will picking machine operator her shower chair today. No additional needs at this time. Patient will discharge tomorrow 07/03.
[2019-07-02 15:33] VITALS: BP 117/68; PULSE 82; TEMP 99.1
--- NOTE | 2019-07-02 17:51 | NUR ---
Pt has had good day. Had visitors this afternoon, has been on phone most of day with insurance and social security [employer]. Pt had shake prepared by me this afternoon per her request. Discussed this am need to try and promote independence in preparation for departure tomorrow but pt has been asking for me to get things for her from around the room for most of the day. Called this evening for help with "making her bed" and when asked if she needed supplies for her bed her response was "i didn't know if I was allowed to make my bed by myself". Encouraged her to perform as many activities by herself that she can but that we would be here to help with whatever else she needs. In chair at side of bed with 1 bedside table for own needs and the other bedside table for meal trays per her request. Call light in reach, will give bedside shift report to nightshift nurse who will resume care.
--- NOTE | 2019-07-02 20:30 | NUR ---
Patient assessed at this time. Alert and oriented, and able to make needs known. Complained of pain to right hip. Given PRN [place] as requested. Patient a little upset about going home tomorrow due to finiancial problems. Stated she had a long day on the phone and was not able to get a solution yet. Did not ask patient specifically what it was, but allowed patient to vent a little about situation. Talked about where she was from and patient was smiling more. LS CTA. Respirations even and unlabored. Denies SOB, dyspnea, and cough. HRR. Denies chest pain and discomfort. Capillary refill < 3 seconds. Non-tenting skin turgor. BSAx4. Abdomen soft and non-tender. No edema noted. Aquacell dressing to right hip is CDI. Denied Voltaren gel and ice to area. Denies having any questions, needs, or concerns at this time. Encouraged to call for assistance, and stated that she would. Given pie with ice-cream as requested. In recliner watching TV at this time. Call light is within reach.
[2019-07-03 05:03] VITALS: BP 101/47; PULSE 100; TEMP 98.5
--- NOTE | 2019-07-03 05:54 | NUR ---
Patient has not called for any assistance throughout the night. When checked on, patient has been resting in bed with eyes closed. Call light is within reach. Has voiced no questions, needs, or concerns this shift.
[2019-07-03] MEDS ORDERED: FERRO-TIME325 MG PO (09:22)
[2019-07-03] MEDS ORDERED: VOLTAREN GEL 1%1 TU TP (09:22)
[2019-07-03] MEDS ORDERED: TYLENOL 325MG325 MG PO (09:23)
[2019-07-03] MEDS ORDERED: NORCO 325 MG-101 TAB PO (09:24)
[2019-07-03] MEDS ORDERED: HYDRODIURIL50 MG PO (09:26)
[2019-07-03] MEDS ORDERED: ZANAFLEX CAPSULE2 MG PO (09:28)
--- NOTE | 2019-07-03 10:24 | NUR ---
Patient resting in bed at this time, call light in reach and independent in her room. Patient reports having some pain and given prn pain meds with good effect. Patient discussed plans when returning home with this nurse. Patient in pleasent mood this morning.
--- NOTE | 2019-07-03 15:48 | NUR ---
Patient Health Summary, Discharge Summary, and Home Meds printed and reviewed with patient. Stressed importance of follow up appointments. Reviewed medications, provided printed prescription for [place]. Belongings gathered by Sis/MARLYN including 4 wheeled rolling walker, metal walker, glasses, purse and wallet, patient reported that she had already spent the $20 so did not have that any more. One set of earrings were on her and the other was placed in her purse. Dirty clothes were placed in a via [employer] take home bag and sent home with family. Iphone, reader and chargers were placed in patient purse for her to take home. All painting supplies and paintings were placed in bags and sent home with patient. Patient also went home with her wood cane, swimming suits, reachers and extra items that she acculumulated while she was in IPR. Patient was transported via wheelchair by MARLYN/Sis and seatbelted for ride home by her son. Patient and son denied any questions.
--- NOTE | 2019-07-05 14:06 | NUR ---
Discharge FIM scores for 07/03/19 were reviewed by the team. Team determined the nursing scores on 07/02/19 for eating, dressing - upper, & dressing - lower were not accurate as the nurse did not allow the pt to complete the tasks for herself.--Jannette Shelton, PD
[2019-07-15] MEDS ORDERED: ADIPEX-P37.5 MG PO (12:57)
== END 2019-07-03 14:00 | disposition home health service (06) | DRG 948 ==
PROVIDERS: Hospitalist; ADMIT Internal Medicine
DX: R53.81 Other malaise (principal); Z68.43 Body mass index [BMI] 50.0-59.9, adult; M16.11 Unilateral primary osteoarthritis, right hip; G47.33 Obstructive sleep apnea (adult) (pediatric); M35.00 Sjogren syndrome, unspecified; E78.5 Hyperlipidemia, unspecified; I10 Essential (primary) hypertension; F41.9 Anxiety disorder, unspecified; N32.81 Overactive bladder; F43.29 Adjustment disorder with other symptoms; D64.9 Anemia, unspecified; K21.9 Gastro-esophageal reflux disease without esophagitis; E66.01 Morbid (severe) obesity due to excess calories; Z79.82 Long term (current) use of aspirin; Z79.891 Long term (current) use of opiate analgesic; Z96.641 Presence of right artificial hip joint
CPT/HCPCS: 99222-AI; 99232-AI; 99239

== ENCOUNTER → 2019-08-30 | Outpatient (CLI) | payer MEDICAID ==
[~2019-08-30] MED LIST changes: +ASPIRIN E.C. 8181 MG PO; +FERRO-TIME325 MG PO; +HYDRODIURIL50 MG PO; +K-TAB10 PO; +TYLENOL 325MG325 MG PO; +VESICARE 5MG5 MG PO; +VOLTAREN GEL 1%1 TU TP; +ZANAFLEX CAPSULE2 MG PO; +ZANAFLEX2 MG PO
== END ==
LOC: BHSO 13:53
DX: F41.1 Generalized anxiety disorder (principal)
CPT/HCPCS: G0463

== ENCOUNTER 2019-10-21 10:00 | Outpatient (RCR) | payer MEDICAID ==
[2019-11-01] MEDS ORDERED: WELLBUTRIN 100100 MG PO ×2 (14:38)
[2019-11-10] MEDS ORDERED: TYLENOL 500MG500 MG PO (10:19)
[2019-11-10] MEDS ORDERED: VOLTAREN GEL 1%1 TU TP (10:22)
[2019-11-10] MEDS ORDERED: TOPAMAX50 MG PO (10:23)
[2019-11-10] MEDS ORDERED: ZANAFLEX2 MG PO (10:24)
[2019-11-10] MEDS ORDERED: SUDAFED30 MG PO (10:24)
[2019-11-10] MEDS ORDERED: NORCO 325 MG-51 TAB PO (10:26)
[2019-11-10] MEDS ORDERED: NATURAL IRON65 MG PO (10:27)
[2019-11-10] MEDS ORDERED: HCTZ 25MG TAB25 MG PO (10:29)
[2019-11-10] MEDS ORDERED: NORVASC 5MG5 MG/TAB PO (10:29)
[2019-11-10] MEDS ORDERED: PRILOSEC 20MG20 MG PO (10:30)
[2019-11-12] MEDS ORDERED: NORCO 325 MG-51 TAB PO (14:17)
[2019-11-12] MEDS ORDERED: ZOFRAN 4MG T4 MG/TAB PO (14:18)
== END 2019-11-19 09:24 | disposition home or self-care (01) ==
LOC: WSC 10:00
DX: R53.1 Weakness (principal); Z96.641 Presence of right artificial hip joint

== ENCOUNTER 2019-10-26 14:17 | Inpatient (IN) | payer MEDICAID ==
[~2019-10-26] VITALS: Ht 162.6 cm; Wt 150.0 kg
[2019-11-01] MEDS ORDERED: WELLBUTRIN 100100 MG PO ×2 (14:38)
[2019-11-10] VITALS (11 sets, daily range): BP systolic 114–139; BP diastolic 69–93; PULSE 60–89; TEMP 65–98.2
[2019-11-10] MEDS ORDERED: TYLENOL 500MG500 MG PO (10:19)
[2019-11-10] MEDS ORDERED: VOLTAREN GEL 1%1 TU TP (10:22)
[2019-11-10] MEDS ORDERED: TOPAMAX50 MG PO (10:23)
[2019-11-10] MEDS ORDERED: ZANAFLEX2 MG PO (10:24)
[2019-11-10] MEDS ORDERED: SUDAFED30 MG PO (10:24)
[2019-11-10] MEDS ORDERED: NORCO 325 MG-51 TAB PO (10:26)
[2019-11-10] MEDS ORDERED: NATURAL IRON65 MG PO (10:27)
[2019-11-10] MEDS ORDERED: NORVASC 5MG5 MG/TAB PO (10:29)
[2019-11-10] MEDS ORDERED: HCTZ 25MG TAB25 MG PO (10:29)
[2019-11-10] MEDS ORDERED: PRILOSEC 20MG20 MG PO (10:30)
--- NOTE | 2019-11-10 18:00 | NUR ---
PT TO ROOM 325 PER BED WITH REPORT FROM VILMA CLINE PACU @0800. PT IS DROWSEY AND AROUSES TO VERBAL, O2 TO 2l BESSY DRAIN TO LEFT SIDE ABDOMEN WITH 5 ROBOT SITES, SHAFER SET CLOSURE WITH INCISION SITES AND GAUZE AROUND BESSY SITE. SCDS PLACED BILATERALLY.
--- NOTE | 2019-11-10 18:54 | NUR ---
PT HAD REDDISH EMESIS APPROX 100 MLS PHLEGHM BLOOD TINGED.
--- NOTE | 2019-11-10 19:03 | NUR ---
REPORT TO MARIN CLINE/
--- NOTE | 2019-11-10 20:45 | NUR ---
Pt. sitting up in bed at this time. Pt. is A&OX3, assessment complete. IV to lt. forearm patent, IV fluids infusing per orders. Pt. reports pain to abd. at a 6 on pain scale at this time. Giving pain meds per orders. Abd. incision CDI with gauze, and 5 abd. laps with bandaids, CDI. BESSY drain with serosangonious drainage noted. Pt. denies further needs, call light within reach.
[2019-11-11 03:41] VITALS: BP 149/76; PULSE 88; TEMP 99.4
[2019-11-11 07:45] VITALS: BP 151/82; PULSE 91; TEMP 98.9
--- NOTE | 2019-11-11 08:00 | NUR ---
Patient in bed resting. Alert and oriented x 3. Shift assessment complete. Patient had small amount of emisis this AM. Denies pain at this time. BESSY with small amount of serosanguinous drainage present. Lap sites with edges well approximated. Denies further needs at this time.
--- NOTE | 2019-11-11 09:00 | NUR ---
Assisted patient to restroom, x 1 assist with cane. Steady gait. Denie further needs at this time.
--- NOTE | 2019-11-11 10:26 | NUR ---
SW met with the patient to discuss discharge plan. The patient lives alone in [place]. She reports independence with ADLs and has a cane. She states that she has been working with [facility] about getting some private duty hours. She states that she has not heard from them yet and was interested in obtaining their phone number. SW provided the phone number to the patient. The patient's PCP is Aster Morrissey PA-C and she receives her medications at [facility] in [place]. She reports no difficulties obtaining her meds. The patient does not have advanced directives and she was not interested in completing them at this time. She states that her next-of-kin is her son, Chuy (ph#[phone]). The patient plans to return home upon discharge. She states that a friend may be able to provide her with transportation. No other additional needs at this time, but SW to continue to follow.
[2019-11-11 11:26] VITALS: BP 167/75; PULSE 85; TEMP 98.8
[2019-11-11 15:50] VITALS: BP 177/83; PULSE 89; TEMP 97.8
--- NOTE | 2019-11-11 19:45 | NUR ---
Pt. sitting up in bed watching TV at this time. Pt. is A&OX3, assessment complete. INT to Rt. forearm patent. Pt. reports headache pain at this time and would like 1 norco. Dressings to abd incision CDI. Pt. denies further needs, call light within reach.
[2019-11-11 20:48] VITALS: BP 147/70; PULSE 88; TEMP 98.9
[2019-11-11 23:36] VITALS: BP 127/60; PULSE 94; TEMP 98.8
--- NOTE | 2019-11-12 06:10 | NUR ---
Pt. slept well through the night. Pt. remains A&OX3. No change in status.
--- NOTE | 2019-11-12 08:20 | NUR ---
Patient in bed resting. Alert and oriented x 3. Shift assessment complete. Abdominal lap sites with bandaids, CDI. Previous BESSY site with gauze, CDI. Denies pain at this time. Denies further needs at this time.
[2019-11-12 09:20] VITALS: BP 120/61; PULSE 77; TEMP 99.4
--- NOTE | 2019-11-12 09:50 | NUR ---
Patient called out to nurses station states states that she is having nausea after taking her AM medications. Zofran given per orders.
--- NOTE | 2019-11-12 12:30 | NUR ---
Patient ambulating in halls independently, steady gait with cane.
[2019-11-12 12:46] VITALS: BP 130/71; PULSE 78; TEMP 98.1
[2019-11-12] MEDS ORDERED: NORCO 325 MG-51 TAB PO (14:17)
[2019-11-12] MEDS ORDERED: ZOFRAN 4MG T4 MG/TAB PO (14:18)
[2019-11-12 16:18] VITALS: BP 125/69; PULSE 95; TEMP 99.5
--- NOTE | 2019-11-12 16:41 | NUR ---
The patient is in need of transportation back home. ANGELINE contacted the patient's transportation services through her insurance, Medicaid [employer], and scheduled her a ride back home. Confirmation #[id number]. ANGELINE informed the patient and her RN. No additional needs at this time.
--- NOTE | 2019-11-12 17:36 | NUR ---
Discharge education provided to patient. Educated on signs and symptoms of infection. Educated on follow up appointment and maintaining postop diet per jozefy light. All questions answered. INT to left forarm discontinued. Assisted patient to dress. Denies pain or further needs at this time. Patient out by wheelchair with surgical staff.
== END 2019-11-12 17:40 | disposition home or self-care (01) | DRG 621 ==
LOC: SURG 11-10 09:33 → INPTSU 11-10 09:33 → SURG 11-10 12:30
PROVIDERS: ADMIT Surgery
PROC: 0DB64Z3 Excision of Stomach, Percutaneous Endoscopic Approach, Vertical (ICD-10-PCS; principal; 2019-11-10 12:30)
DX: E66.01 Morbid (severe) obesity due to excess calories (principal); K21.9 Gastro-esophageal reflux disease without esophagitis; K44.9 Diaphragmatic hernia without obstruction or gangrene; Z96.641 Presence of right artificial hip joint; M19.90 Unspecified osteoarthritis, unspecified site; E78.5 Hyperlipidemia, unspecified; I10 Essential (primary) hypertension; F32.9 Major depressive disorder, single episode, unspecified; F41.9 Anxiety disorder, unspecified; Z68.43 Body mass index [BMI] 50.0-59.9, adult; M35.00 Sjogren syndrome, unspecified
CPT/HCPCS: J0360; J0461; J0690; J1100; J1170; J2370; J2405; J2550; J2704; J3010; J7030; J7120

== ENCOUNTER → 2019-11-01 | Outpatient (CLI) | payer SELFPAY ==
[~2019-11-01] MED LIST changes: +NATURAL IRON65 MG PO; +PRILOSEC 20MG20 MG PO; +SUDAFED30 MG PO; +TYLENOL 500MG500 MG PO; +WELLBUTRIN 100100 MG PO; +ZOFRAN 4MG T4 MG/TAB PO
== END ==
LOC: BHSO 10:47
DX: F33.1 Major depressive disorder, recurrent, moderate (principal)

== ENCOUNTER → 2019-11-01 | Outpatient (CLI) | payer MEDICAID | LOC: BHSO 14:01 | DX: F06.32 Mood disorder due to known physiological condition with major depressive-like episode (principal) | CPT/HCPCS: G0463 ==

== ENCOUNTER → 2020-04-21 | Outpatient (CLI) | payer SELFPAY | LOC: BHSO 14:00 | DX: F33.42 Major depressive disorder, recurrent, in full remission (principal) | CPT/HCPCS: G0463 ==

== ENCOUNTER → 2020-08-17 | Outpatient (CLI) | payer OTHER | LOC: BHSO 10:04 | DX: F33.42 Major depressive disorder, recurrent, in full remission (principal) | CPT/HCPCS: G0463 ==